=== PATIENT | male | born 1995 | race Caucasian/White ===

== ENCOUNTER 2024-01-15 20:23 | Emergency (ER) | payer OTHER ==
[~2024-01-15] VITALS: Ht 177.8 cm; Wt 87.0 kg
[2024-01-15 20:27] VITALS: BP 146/84; PULSE 90; RESP 18; TEMP 98.2; O2SAT 98
[2024-01-15] MEDS: LORAZEPAM 1MG TABLET PO ONE (21:47)
== END 2024-01-15 22:44 | disposition left against medical advice (07) ==
LOC: ER 20:23
DX: F41.9 Anxiety disorder, unspecified (principal); N50.82 Scrotal pain
CPT/HCPCS: 76870; 93976; 99284